=== PATIENT | female | born 1965 | race Caucasian/White ===

== ENCOUNTER 2020-10-06 15:54 | Emergency (ER) | payer OTHER ==
[~2020-10-06] VITALS: Ht 160 cm; Wt 58.1 kg
[2020-10-06] MEDS ORDERED: EXCEDRIN MIGRA1 EAC1 (16:06)
[2020-10-06] MEDS ORDERED: BUTALB-ASPIRIN1 EACH (16:06)
[2020-10-06] MEDS ORDERED: PRILOSEC10 MG (16:07)
== END 2020-10-06 19:52 | disposition home or self-care (01) ==
LOC: ER 15:54
DX: G43.809 Other migraine, not intractable, without status migrainosus (principal); M54.2 Cervicalgia